=== PATIENT | female | born 1985 | race Caucasian/White ===

== ENCOUNTER 2017-04-29 18:02 | Emergency (ER) | payer OTHER ==
[2017-04-29] MEDS ORDERED: GELATIN SPONGE,ABSORB (SMALL) 1 EACH SPONGE TOPICAL STA (18:27)
[2017-04-29] MEDS ORDERED: ACETAMINOPHEN TAB 325 MG TAB PO STA (18:28)
--- NOTE | 2017-04-29 19:39 | ED ---
Wound/Laceration HPI - General Chief Complaint: Wound/Laceration Stated Complaint: L hand laceration Time Seen by Provider: 04/29/17 18:18 Source: patient Mode of arrival: ambulatory Limitations: no limitations - History of Present Illness Initial Comments: 31-year-old female patient presents to the emergency department today for evaluation of an injury to the left index finger. Patient was using an immersion excel expert when she went to clean eye with her finger and accidentally hit the button. Patient denies any difficulty with range of motion to the finger. States that she was able to get the bleeding under control. She denies any numbness or tingling to the finger. She denies any other injuries. Patient denies any headache, neck pain, back pain, chest pain, shortness of breath, dizziness, weakness, abdominal pain, nausea, vomiting, or difficulties with bowel movements or urination. She states her tetanus is up-to-date. - Related Data Home Medications Medication Instructions Recorded Confirmed 78/Iron/Folate 1/Dha 1 cap PO DAILY 04/29/17 04/29/17 [Prenate Dha Softgel] Allergies Allergy/AdvReac Type Severity Reaction Status Date / Time No Known Allergies Allergy Verified 04/29/17 18:45 Review of Systems ROS Statement: Those systems with pertinent positive or pertinent negative responses have been documented in the HPI. ROS Other: All systems not noted in ROS Statement are negative. Past Medical History Past Medical History: No Reported History History of Any Multi-Drug Resistant Organisms: None Reported Past Surgical History: No Surgical Hx Reported Past Psychological History: No Psychological Hx Reported Smoking Status: Never smoker Past Alcohol Use History: None Reported Past Drug Use History: None Reported General Exam Limitations: no limitations General appearance: alert, in no apparent distress, other (This is a well- developed, well-nourished adult female patient in no acute distress. Vital signs upon presentation her temperature 98.1F, pulse 102, respirations 20, blood pressure 130/86, pulse ox is 97% on room air.) Respiratory exam: Present: normal lung sounds bilaterally. Absent: respiratory distress, wheezes, rales, rhonchi, stridor Cardiovascular Exam: Present: regular rate, normal rhythm, normal heart sounds. Absent: systolic murmur, diastolic murmur, rubs, gallop, clicks Extremities exam: Present: full ROM, normal capillary refill, other (Patient has lacerations to the palmar aspects of the distal index finger on the left hand. There is flap like laceration to the tip of the right index finger. His skin is otherwise pink, warm, and dry. Cap refill is less than 3 seconds. Radial pulses 2+ and equal bilaterally.). Absent: tenderness, pedal edema, joint swelling, calf tenderness Neurological exam: Present: alert, oriented X3, CN II-XII intact Psychiatric exam: Present: normal affect, normal mood Skin exam: Present: warm, dry, intact, normal color. Absent: rash Course Vital Signs 04/29/17 04/29/17 18:03 20:00 Temperature 98.1 F 98.2 F Pulse Rate 102 H 85 Respiratory 20 18 Rate Blood Pressure 130/86 130/65 O2 Sat by Pulse 97 99 Oximetry Procedures - Laceration Laceration #1 Consent Obtained: verbal consent Time Out Performed: Yes Indication: laceration Site: hand (Left Index Finger) Size (cm): 2 Description: irregular Depth: simple, single layer Anesthetic Used: lidocaine 1% Anesthesia Technique: local infiltration Amount (mls): 4 Pre-repair: irrigated extensively Type of Sutures: nylon Size of Sutures: 5-0 Number of Sutures: 4 Technique: simple, interrupted Patient Tolerated Procedure: well, no complications Medical Decision Making - Medical Decision Making 31-year-old female patient presented to the emergency department today for evaluation of laceration to the palmar aspect of the distal left index finger. Physical examination reveals a 2.5 cm laceration with multiple skin flaps and irregularities. Skin appears to be shredded. I was able to repair the medial aspect of the laceration with 4 sutures. Dressing was applied. Patient was educated regarding signs or symptoms of infection. She was instructed to wash the wounds twice daily with warm soap and water. She is instructed to return here in 7 days for suture removal. She is instructed to have her physician recheck the wound in one or 2 days. She is instructed to return here immediately for any new, worsening, or concerning symptoms. She verbalizes understanding and agrees this plan. Disposition Clinical Impression: Finger laceration, Skin avulsion Disposition: HOME SELF-CARE Condition: Good Instructions: Care For Your Stitches (ED), Laceration (ED) Additional Instructions: Monitor for signs or symptoms of infection including but not limited to redness , swelling, drainage of pus, fever, or chills. Continue taking Tylenol for pain control. Keep finger elevated. Return here for removal of stitches in 7 days. Do not immerse in water, like dishwater, pools, hot tubs, lakes, or ponds. Return here immediately for any new, worsening, or concerning symptoms. Referrals: Abhijeet Leavitt DO [Primary Care Provider] - 1-2 days Time of Disposition: 19:39
[2017-04-29 20:01] VITALS: BP 130/65; PULSE 85; RESP 18; TEMP 98.2
== END 2017-04-29 20:01 | disposition home or self-care (01) ==
LOC: EC 18:02
DX: O9A.213 Injury, poisoning and certain other consequences of external causes complicating pregnancy, third trimester (principal); S61.211A Laceration without foreign body of left index finger without damage to nail, initial encounter; Z3A.33 33 weeks gestation of pregnancy; Z79.899 Other long term (current) drug therapy; W22.8XXA Striking against or struck by other objects, initial encounter; Y93.89 Activity, other specified
CPT/HCPCS: 12001; 99282

== ENCOUNTER 2019-09-19 06:30 | Inpatient (IN) | payer OTHER ==
[2019-09-19] MEDS ORDERED: CARBOPROST TROMETHAMINE 250 MCG/ML 1 ML AMP IM PRN (07:21)
[2019-09-19] MEDS ORDERED: METHYLERGONOVINE 0.2 MG/ML 1 ML AMP IM PRN (07:21)
[2019-09-19] MEDS ORDERED: MISOPROSTOL 200 MCG TAB PO STA (07:25)
[2019-09-19] MEDS ORDERED: BUTORPHANOL 1 MG/ML 1 ML VIAL IV PRN (07:27)
[2019-09-19] MEDS ORDERED: ONDANSETRON 4 MG/2 ML VIAL IVP PRN (07:28)
[2019-09-19] MEDS: LACTATED RINGERS 1,000 ML IV SCH ×3 (07:28→15:45)
[2019-09-19 07:40] LABS: Basophils % (A) 0 %; Eosinophils # (A) 0.2 k/uL (0-0.7); Eosinophils % (A) 3 %; HCT 40.9 % (34.0-46.0); HGB 13.8 gm/dL (11.4-16.0); Lymphocytes # (A) 1.3 k/uL (1.0-4.8); Lymphocytes % (A) 17 %; MCH 31.9 pg (25.0-35.0); MCHC 33.7 g/dL (31.0-37.0); MCV 94.7 fL (80.0-100.0); Mean Platelet Volume 7.2; Monocytes # (A) 0.3 k/uL (0-1.0); Monocytes % (A) 4 %; Neutrophils # (A) 5.7 k/uL (1.3-7.7); Neutrophils % (A) 75 %; Platelet Count 327 k/uL (150-450); RBC 4.32 m/uL (3.80-5.40); WBC 7.7 k/uL (3.8-10.6)
--- NOTE | 2019-09-19 08:12 | P.HPOB ---
History of Present Illness H&P Date: 09/19/19 Chief Complaint: Interuterine demise at 24 and 5/sevenths weeks. This is a 33-year-old 2 para 1001 at 24-5/7 weeks with known low-lying placenta that presented to the office on 09/17 for follow-up ultrasound. Patient stated a few days prior she had bleeding in the morning only with wiping. She denied any bright red bleeding. Ultrasound was performed in the office revealing interuterine demise with best estimated date . Femur length of 19 weeks and 5/7 days. No heart tones were appreciated. During this patient had been receiving routine care since the first trimester. Patient underwent 20 week ultrasound was noted have a low- lying placenta, 0.5 cm from the cervical os. Patient had this with her last in addition. Her last was uncomplicated, normal spontaneous vaginal delivery of a viable female at 38 weeks. On bloodwork she was noted have a blood type of A+, rubella status immune, RPR nonreactive, hepatitis B surface antigen negative, HIV negative. Review of Systems Constitutional: Denies chills, Denies fatigue, Denies fever Ears, nose, mouth and throat: Denies headache Cardiovascular: Denies edema Gastrointestinal: Denies nausea, Denies vomiting Genitourinary: Reports Past Medical History Past Medical History: No Reported History History of Any Multi-Drug Resistant Organisms: None Reported Past Surgical History: No Surgical Hx Reported Past Anesthesia/Blood Transfusion Reactions: No Reported Reaction Past Psychological History: No Psychological Hx Reported Smoking Status: Never smoker Past Alcohol Use History: None Reported Past Drug Use History: None Reported - Past Family History Father Family Medical History: Hypertension Mother Family Medical History: Diabetes Mellitus Medications and Allergies Home Medications Medication Instructions Recorded Confirmed Type 78/Iron/Folate 1/Dha 1 cap PO DAILY 04/29/17 09/19/19 History [Prenate Dha Softgel] Allergies Allergy/AdvReac Type Severity Reaction Status Date / Time No Known Allergies Allergy Verified 09/19/19 06:40 Exam Osteopathic Statement: *. No significant issues noted on an osteopathic structural exam other than those noted in the History and Physical/Consult. Vital Signs Temp Pulse Resp BP 09/19/19 06:39 97.7 F 79 16 113/76 Intake and Output 09/18/19 09/19/19 09/19/19 22:59 06:59 14:59 Other: Weight 60.781 kg Targeted physical exam is performed in this date and acquisition editor a well-nourished well-developed female in no acute distress, breathing is noted to be nonlabored, heart has a regular rate and rhythm. Abdomen is gravid and appropriate for gestational age. Cervical exam is deferred, as it was performed in the office yesterday. It was noted to be closed/firm/high presentation of the fetus in the posterior lower uterine segment. Results Result Diagrams: 09/19/19 07:10 Assessment and Plan (1) IUFD (intrauterine ) Current Visit: Yes Status: Acute Code(s): HDB5372 - SNOMED Code(s): 939141433 (2) AMA (advanced maternal age) multigravida 35+ Current Visit: Yes Status: Acute Code(s): O09.529 - SUPERVISION OF ELDERLY MULTIGRAVIDA, UNSPECIFIED TRIMESTER SNOMED Code(s): 411569841 Plan: We'll plan Cytotec induction of labor, plan is discussed with the patient including options for analgesia including Stadol/CONSTRUCTION CONSULTANT or epidural should anesthesia allow. Multiple questions are answered and anticipate spontaneous vaginal delivery later today.
[2019-09-19] MEDS ORDERED: PRENATAL VIT-IRON-FOLIC ACID 1 EACH CAP PO SCH (09:00)
[2019-09-19 10:22] LABS: Partial Thromboplastin Time 24.2 sec (22.0-30.0); Prothrombin Time 10.3 sec (9.0-12.0)
[2019-09-19] MEDS ORDERED: MISOPROSTOL 200 MCG TAB VAGINAL SCH (12:00)
[2019-09-19] MEDS ORDERED: ACETAMINOPHEN IV (For NPO) 1,000 MG in EMPTY BAG 1 BAG IVPB ONE (14:00)
[2019-09-19] MEDS ORDERED: MISOPROSTOL 200 MCG TAB PO SCH (16:00)
[2019-09-19] MEDS: MISOPROSTOL 200 MCG TAB PO SCH (20:10)
[2019-09-19] MEDS ORDERED: ROPIVACAINE 100 MG, fentaNYL (PF) 200 MCG in SODIUM CHLORIDE 0.9% 76 ML EPIDURAL ONE (20:45)
[2019-09-19] MEDS ORDERED: WITCH HAZEL 1 EACH MED..PAD TOPICAL PRN (21:38)
[2019-09-19] MEDS ORDERED: HYDROcodone/APAP 5-325MG 1 EACH TAB PO PRN (21:38)
[2019-09-19] MEDS ORDERED: ACETAMINOPHEN TAB 325 MG TAB PO PRN (21:38)
[2019-09-19] MEDS ORDERED: diphenhydrAMINE 50 MG/ML 1 ML VIAL IVP PRN ×2 (21:38)
[2019-09-19] MEDS ORDERED: BENZOCAINE/MENTHOL SPRAY 1 GM/SPRAY AEROSOL TOPICAL PRN (21:38)
[2019-09-19] MEDS ORDERED: ZOLPIDEM 5 MG TAB PO PRN (21:38)
[2019-09-19] MEDS ORDERED: diphenhydrAMINE 25 MG CAP PO PRN (21:38)
[2019-09-19] MEDS ORDERED: IBUPROFEN 600 MG TAB PO PRN (21:38)
[2019-09-19] MEDS ORDERED: HYDROCORTISONE 2.5% RECTAL CREAM 30 GM TUBE RECTAL PRN (21:38)
[2019-09-19] MEDS ORDERED: diphenhydrAMINE 50 MG CAP PO PRN (21:38)
[2019-09-19] MEDS ORDERED: SIMETHICONE 80 MG CHEWABLE PO PRN (21:38)
[2019-09-19] MEDS ORDERED: LANOLIN CREAM 5 GM TUBE TOPICAL PRN (21:38)
--- NOTE | 2019-09-19 21:38 | P.PROBDLV ---
Vaginal Delivery Note - . Vaginal Delivery Note: This 33-year-old 2 para 1001 at 24 weeks presented to the office yesterday for follow-up on low-lying placenta. No heart tones were noted and fetus was noted to be measuring 19 weeks and 5 days based on femur length. Patient was admitted this morning for Cytotec induction of labor given interuterine demise. Patient progressed through the day eventually becoming uncomfortable no relief from Stadol therefore epidural was administered by the anesthesia department. Patient underwent amniotomy and dark bloody fluid was noted. Patient progressed through labor eventually noting an increase in pelvic pressure on exam fetus was noted to be delivered., umbilical cord was doubly clamped and fetus was handed off to mom. Placenta remained intact bleeding was minimal at this time. No vaginal lacerations were noted.
[2019-09-19 23:44] VITALS: TEMP 98.2
[2019-09-20 00:11] VITALS: BP 123/58; PULSE 66; RESP 16
[2019-09-20] MEDS: MISOPROSTOL 200 MCG TAB PO SCH (01:49)
[2019-09-20] MEDS ORDERED: OXYTOCIN 20 UNITS/1000 ML NS 1,000 ML IV SCH (02:00)
[2019-09-20] MEDS ORDERED: SENNOSIDES-DOCUSATE SODIUM 1 EACH TAB PO SCH (08:00)
--- NOTE | 2019-09-23 14:07 | P.DS ---
Providers Date of admission: 09/19/19 06:31 Expected date of discharge: 09/23/19 Attending physician: Radha Castellanos Primary care physician: Stated None - Discharge Diagnosis(es) (1) IUFD (intrauterine ) Status: Acute (2) AMA (advanced maternal age) multigravida 35+ Status: Acute Hospital Course: This pleasant 33-year-old 2 para 1001 was seen in the office at 24-5/7 weeks for routine placenta check. On patient's 20 week ultrasound patient was noted have a low-lying placenta 0.5 cm from the os. Patient was noted on this visit to have no heart tones. Infant was noted to measure 19 weeks. Patient was counseled on delivery options in the office. Patient was admitted to the hospital and Cytotec induction of labor was begun. Patient made slow progress through labor eventually becoming uncomfortable and requesting epidural placement. Patient did undergo amniotomy and dark bloody fluid was noted. Patient then complained of pelvic pressure and was noted to be in the vaginal vault. With 1 small maternal effort the was delivered the umbilical cord was doubly clamped and cut. No bleeding was noted. The infant was wrapped and handed off to mom. The placenta was delivered soon afterwards uterus is noted to be firm and below the umbilicus minimal bleeding was noted. No vaginal lacerations were noted. Epidural was discontinued. Subsequently patient was feeling well bleeding was stable and patient wishes discharge home. Therefore around 2:30 AM patient was discharged home without difficulty. Patient was counseled on depression, risks of infection. Patient stated understanding and wished to be discharged home. Patient Condition at Discharge: Good Plan - Discharge Summary Discharge Rx Participant: No New Discharge Prescriptions: No Action 78/Iron/Folate 1/Dha [Prenate Dha Softgel] 1 cap PO DAILY Discharge Medication List 78/Iron/Folate 1/Dha [Prenate Dha Softgel] 1 cap PO DAILY 04/29/17 [History] Follow up Appointment(s)/Referral(s): Radha Castellanos DO [Doctor of Osteopathic Medicine] - 2 Weeks Patient Instructions/Handouts: Stillbirth (DC), Stillbirth (GEN) Discharge Disposition: HOME SELF-CARE
== END 2019-09-20 02:20 | disposition home or self-care (01) | DRG 806 ==
LOC: 4FBP 06:31
PROVIDERS: ADMIT Obstetrics & Gynecology Obstetrics; ATTEND Obstetrics & Gynecology Obstetrics
DX: O36.4XX0 Maternal care for intrauterine death, not applicable or unspecified (principal); O44.43 Low lying placenta NOS or without hemorrhage, third trimester; Z37.1 Single stillbirth; Z3A.24 24 weeks gestation of pregnancy; Z79.899 Other long term (current) drug therapy; Z82.49 Family history of ischemic heart disease and other diseases of the circulatory system; Z83.3 Family history of diabetes mellitus
CPT/HCPCS: 85025; 85610; 85730; 86850; 86900; 86901; 88305

== ENCOUNTER → 2020-03-12 | Outpatient (CLI) | payer OTHER ==
--- NOTE | 2020-03-12 10:54 | US ---
EXAMINATION TYPE: Transabdominal DATE OF EXAM: 03/12/2020 10:32 AM COMPARISON: NONE CLINICAL HISTORY: O46.91 Antepartum hemorrhage, unspecified. Pt states light vaginal bleeding x 2 day s EXAM PERFORMED: Transvaginal (TV) and Transabdominal (TA) EXAM MEASUREMENTS: GESTATIONAL AGE / DATING Physician Established: Not yet established Dates by LMP: (10 weeks/5 days) EDC: 10/03/2020 Dates by First Scan: No prior Dates by Current Scan for: (8 weeks/0 days) Demise MATERNAL ANATOMY Uterus: 8.9 x 5.2 x 6.9 cm Right Ovary: 3.3 x 2.3 x 2.7 cm Left Ovary: 2.6 x 1.4 x 2.8 cm Post CDS / Adnexa: wnl Presence of free fluid: No Presence of corpus luteal cyst: Right Ovary= 1.8 x 1.5 x 1.5 cm GESTATION / SURVEY CRL: 1.5 cm (8 weeks/0 days) Yolk Sac (normal less than 6mm): Not visualized Heart Rate: Not detected IUP: Demise Date of LMP: 12/28/2019 8 week demise Results called to Dr. Castellanos at time of exam IMPRESSION: demise as noted above.
== END | disposition home or self-care (01) ==
LOC: RADUSWWP 10:10
PROVIDERS: ATTEND Obstetrics & Gynecology Obstetrics
DX: O36.4XX0 Maternal care for intrauterine death, not applicable or unspecified (principal); Z3A.08 8 weeks gestation of pregnancy
CPT/HCPCS: 76801; 76817

== ENCOUNTER → 2020-03-12 | Outpatient (CLI) | payer OTHER ==
[2020-03-12 12:12] LABS: Basophils % (A) 1 %; Eosinophils # (A) 0.1 k/uL (0-0.7); Eosinophils % (A) 1 %; HCT 41.4 % (34.0-46.0); HGB 13.5 gm/dL (11.4-16.0); Lymphocytes # (A) 1.2 k/uL (1.0-4.8); Lymphocytes % (A) 17 %; MCH 30.1 pg (25.0-35.0); MCHC 32.6 g/dL (31.0-37.0); MCV 92.3 fL (80.0-100.0); Mean Platelet Volume 6.6; Monocytes # (A) 0.3 k/uL (0-1.0); Monocytes % (A) 4 %; Neutrophils # (A) 5.7 k/uL (1.3-7.7); Neutrophils % (A) 76 %; Platelet Count 309 k/uL (150-450); RBC 4.49 m/uL (3.80-5.40); RDW 12.7 % (11.5-15.5); WBC 7.5 k/uL (3.8-10.6)
== END | disposition home or self-care (01) ==
LOC: LABPAT 11:21
PROVIDERS: ATTEND Obstetrics & Gynecology Obstetrics
DX: Z01.818 Encounter for other preprocedural examination (principal); O02.1 Missed abortion
CPT/HCPCS: 36415; 85025; 86850; 86900; 86901

== ENCOUNTER 2020-03-13 09:27 | Day surgery (SDC) | payer OTHER ==
[2020-03-12 13:11] VITALS: BMI 20.3
[~2020-03-13 09:27] MED LIST: DEXAMETHASONE SOD PHOSPHATE 10 MG/ML 1 ML VIAL IV ONE; HYDROmorphone 0.5 MG/0.5 ML SYRINGE IVP PRN; KETOROLAC 15 MG/ML 1 ML VIAL IVP SCH; LIDOCAINE 1% (10MG/ML) FOR IV START INTRADERMA PRN; METOCLOPRAMIDE 5 MG/ML 2 ML VIAL IVP PRN; ONDANSETRON 4 MG/2 ML VIAL IVP ONE; Pre Op ABX Message 1 EACH MISC MISCELLANE ONE; SCOPOLAMINE 1.5MG/72HR PATCH TRANSDERM ONE
[2020-03-13 09:47] VITALS: TEMP 98.5
[2020-03-13] MEDS: LACTATED RINGERS 1,000 ML IV SCH ×2 (10:06→11:17)
[2020-03-13] MEDS ORDERED: fentaNYL (PF) 50 MCG/ML 2 ML AMP ONE (11:14)
[2020-03-13] MEDS ORDERED: MIDAZOLAM 2 MG/2 ML VIAL ONE (11:14)
[2020-03-13] MEDS ORDERED: PROPOFOL 10 MG/ML 20 ML VIAL IV ONE (11:14)
[2020-03-13] MEDS ORDERED: LIDOCAINE 1% INJ 10MG/ML (20 ML MDV) ONE (11:14)
--- NOTE | 2020-03-13 12:03 | P.OP ---
Date of Procedure: 03/13/20 Preoperative Diagnosis: Missed AB Postoperative Diagnosis: Same Procedure(s) Performed: Suction dilation and curettage Anesthesia: MAC Surgeon: Radha Castellanos Estimated Blood Loss (ml): 5 IV fluids (ml): 400 Urine output (ml): 100 Pathology: other (Uterine contents) Condition: stable Disposition: PACU Indications for Procedure: Missed AB at 8 weeks Operative Findings: Moderate amount of products of conception Description of Procedure: Patient was taken back to the operating suite where general anesthesia was obtained without difficulty by the anesthesia department. She was prepped and draped in the normal sterile fashion in the dorsal lithotomy position. A red rubber catheter was used to drain the bladder clear yellow urine. A weighted speculum was placed in the posterior vaginal vault. The anterior lip of the cervix is visualized and grasped with a single-tooth tenaculum. The endocervical canal was then dilated to 18-[place]. An 8 curved suction curette was then placed through the cervix and toward the endometrial cavity suction was then activated and the uterus was cleared of a moderate amount of products of conception with 2 passes. A gentle sharp curettage was performed and the uterus is noted to be empty. An additional pass with the suction curet was used to ensure no further tissue remained. The single-tooth tenaculum was taken off of the anterior lip of the cervix. Hemostasis was appreciated on the tenaculum site. All instrument removed from the patient's vaginal vault. All counts were noted to be correct 2 at the end the procedure. Patient was taken to the recovery room awake in stable condition.
[2020-03-13 12:27] VITALS: RESP 16
[2020-03-13 12:48] VITALS: BP 117/60; PULSE 50
== END 2020-03-13 13:10 | disposition home or self-care (01) ==
LOC: OR 09:27
PROVIDERS: ATTEND Obstetrics & Gynecology Obstetrics
DX: O02.1 Missed abortion (principal); Z79.82 Long term (current) use of aspirin; Z83.49 Family history of other endocrine, nutritional and metabolic diseases; Z82.49 Family history of ischemic heart disease and other diseases of the circulatory system; Z83.3 Family history of diabetes mellitus
CPT/HCPCS: 88305; 59820; J2250; J1100; J2405; J2001; J3010; J2704

== ENCOUNTER 2020-12-15 12:40 | Outpatient (CLI) | payer OTHER ==
[2020-12-15] MEDS ORDERED: BETAMET ACET-BETAMETH SOD PHOS 6 MG/ML MDV IM SCH (12:45)
--- NOTE | 2020-12-21 08:27 | P.MSEPDOC ---
Presenting Problems - Arrival Data Date of Arrival on Unit: 12/15/20 Time of Arrival on Unit: 12:58 Mode of Transport: Ambulatory - Complaint OB-Reason for Admission/Chief Complaint: Other Comment: written order for celestone injection. Medical History - Information : 4 Para: 1 Term: 1 : 0 Abortions: Spontaneous or Elective: 2 Number of Living Children: 1 - Gestational Age Gestational Age by TAM (wks/days): 30 Weeks and 5 Days Review of Systems - Review of Systems Constitutional: No problems Breast: No problems ENT: No problems Cardiovascular: No problems Respiratory: No problems Gastrointestinal: No problems Genitourinary: No problems Musculoskeletal: No problems Neurological: No problems Skin: No problems Maternal Triage Index - Maternal Triage Index Presenting for scheduled procedure w/no complaint: Yes - Scheduled/Requesting Priority 5 Scheduled/Requesting Priority 5: No Disposition - Disposition OB Disposition: Discharge to home Discharge Date: 12/15/20 Discharge Time: 12:58 I agree with the RN Medical Screening Exam: Yes Case reviewed; plan agreed upon as documented in EMR&OBIX.: Yes Comments: Patient was neither seen nor examined by me. Diagnosis: RELATED CONDITIONS, UNSPECIFIED, THIRD TRIMESTER
== END 2020-12-15 12:58 | disposition home or self-care (01) ==
LOC: FBPOP 12:40
PROVIDERS: ATTEND Obstetrics & Gynecology
DX: O26.93 Pregnancy related conditions, unspecified, third trimester (principal); Z3A.30 30 weeks gestation of pregnancy
CPT/HCPCS: 99214; 96372; J0702

== ENCOUNTER 2020-12-16 12:30 | Outpatient (CLI) | payer OTHER ==
[2020-12-16] MEDS ORDERED: BETAMET ACET-BETAMETH SOD PHOS 6 MG/ML MDV IM SCH (12:45)
[2020-12-16 13:29] VITALS: BP 120/65; PULSE 79; RESP 16; TEMP 98
== END 2020-12-16 12:50 | disposition home or self-care (01) ==
LOC: FBPOP 12:30
PROVIDERS: ATTEND Obstetrics & Gynecology Obstetrics
DX: O36.5930 Maternal care for other known or suspected poor fetal growth, third trimester, not applicable or unspecified (principal); Z3A.30 30 weeks gestation of pregnancy
CPT/HCPCS: 96372; J0702; 99213

== ENCOUNTER 2021-01-28 03:15 | Inpatient (IN) | payer OTHER ==
[2021-01-28] MEDS ORDERED: LIDOCAINE 0.5% (PF) 5 MG/ML (50 ML SDV) SQ PRN (03:32)
[2021-01-28] MEDS ORDERED: TERBUTALINE 1 MG/ML VIAL SQ PRN (03:32)
[2021-01-28] MEDS ORDERED: OXYTOCIN 10 UNIT/ML 1 ML VIAL IM PRN (03:32)
[2021-01-28] MEDS ORDERED: CARBOPROST TROMETHAMINE 250 MCG/ML 1 ML AMP IM PRN (03:32)
[2021-01-28] MEDS ORDERED: METHYLERGONOVINE 0.2 MG/ML 1 ML AMP IM PRN (03:32)
[2021-01-28] MEDS ORDERED: BUTORPHANOL 1 MG/ML 1 ML VIAL IV PRN (03:39)
[2021-01-28] MEDS: LACTATED RINGERS 1,000 ML IV SCH ×3 (04:14→20:50)
[2021-01-28 04:32] LABS: Basophils % (A) 0 %; Eosinophils # (A) 0.2 k/uL (0-0.7); Eosinophils % (A) 2 %; HCT 36.4 % (34.0-46.0); HGB 12.8 gm/dL (11.4-16.0); Lymphocytes # (A) 1.7 k/uL (1.0-4.8); Lymphocytes % (A) 19 %; MCHC 35.1 g/dL (31.0-37.0); MCV 96.9 fL (80.0-100.0); Mean Platelet Volume 8.4; Monocytes # (A) 0.4 k/uL (0-1.0); Monocytes % (A) 5 %; Neutrophils # (A) 6.4 k/uL (1.3-7.7); Neutrophils % (A) 72 %; Platelet Count 248 k/uL (150-450); RBC 3.76 m/uL (3.80-5.40); RDW 14.1 % (11.5-15.5)
[2021-01-28] MEDS ORDERED: OXYTOCIN 30 UNITS/500 ML NS 30 UNIT in SALINE 1 500ML.BAG IV SCH ×2 (05:00→17:00)
--- NOTE | 2021-01-28 08:47 | P.HPOB ---
History of Present Illness H&P Date: 01/28/21 Chief Complaint: IUP at 37-0/7 weeks, premature rupture of membranes This is a 35-year-old G for P1111 at 37-0/7 weeks that presents to labor and delivery with complaints of rupture of membranes around 2 AM. Patient states the fluid was noted be clear in nature. Patient has been receiving routine care which has been complicated by growth resection. Patient had an ultrasound done to stay at this week with an estimated weight of 5 lbs. 1 oz., 4th percentile, amniotic fluid index was 10, biophysical profile noted to be 8 out of 8. Patient has a history of recurrent loss, demise at 22 weeks, spontaneous AB first trimester. Patient notes good movement. On bloodwork this patient has a blood type of A+, rubella status is immune, RPR is nonreactive, B surface antigen is negative, HIV is negative she did pass her 1 hour gestational diabetes screen. Group B beta strep culture was negative on 01/19. Review of Systems Constitutional: Denies chills, Denies fatigue, Denies fever Ears, nose, mouth and throat: Denies headache Cardiovascular: Reports leg edema Respiratory: Denies dyspnea Gastrointestinal: Denies constipation, Denies diarrhea, Denies nausea, Denies vomiting Genitourinary: Reports Past Medical History Past Medical History: No Reported History History of Any Multi-Drug Resistant Organisms: None Reported Past Surgical History: No Surgical Hx Reported Additional Past Surgical History / Comment(s): [place] tooth extraction, and D&C Past Anesthesia/Blood Transfusion Reactions: No Reported Reaction Additional Past Anesthesia/Blood Transfusion Reaction / Comment(s): no hx general anesthesia, had epidurals in past before.,no hx blood transfusions Past Psychological History: No Psychological Hx Reported Smoking Status: Never smoker Past Alcohol Use History: None Reported Past Drug Use History: None Reported - Past Family History Father Family Medical History: Hypertension Additional Family Medical History / Comment(s): Aortic Aneurysm Repair Mother Family Medical History: Diabetes Mellitus Medications and Allergies Home Medications Medication Instructions Recorded Confirmed Type 78/Iron/Folate 1/Dha 1 cap PO DAILY 04/29/17 01/28/21 History [Prenate Dha Softgel] Aspirin 81 mg PO DAILY 03/12/20 01/28/21 History Allergies Allergy/AdvReac Type Severity Reaction Status Date / Time No Known Allergies Allergy Verified 01/28/21 03:26 Exam Osteopathic Statement: *. No significant issues noted on an osteopathic structural exam other than those noted in the History and Physical/Consult. Vital Signs Temp Pulse Resp BP Pulse Ox 01/28/21 03:59 96.9 F L 72 16 150/90 01/28/21 03:25 97.3 F L 77 16 129/82 99 Intake and Output 01/27/21 01/28/21 01/28/21 22:59 06:59 14:59 Other: Weight 68.492 kg Targeted physical exam was done on this date, this is a pleasant well-nourished well-developed female in no acute distress, breathing is noted to be nonlabored, heart has a regular rate and rhythm, abdomen is noted to be gravid. heart tones are noted to be category 1 and she is fang irregularly. On cervical exam she is 1/70/-2 station. Results Result Diagrams: 01/28/21 04:15 Abnormal Lab Results - Last 24 Hours (Table) 01/28/21 Range/Units 04:15 RBC 3.76 L (3.80-5.40) m/uL Assessment and Plan (1) 37 weeks gestation of Current Visit: Yes Status: Acute Code(s): Z3A.37 - 37 WEEKS GESTATION OF SNOMED Code(s): 52804115 (2) PROM (premature rupture of membranes) Current Visit: Yes Status: Acute Code(s): O42.90 - DEBI ROM, 7TH0 BETW RUPT & ONST LABR, UNSP WEEKS OF GEST SNOMED Code(s): 10423363 (3) AMA (advanced maternal age) multigravida 35+ Current Visit: No Status: Acute Code(s): O09.529 - SUPERVISION OF ELDERLY MULTIGRAVIDA, UNSPECIFIED TRIMESTER SNOMED Code(s): 200888891 Plan: 35-year-old at 37-0/7 weeks that presented to labor and delivery with complaints of premature rupture of membranes. Patient has known growth restriction with an estimated weight of 5 lbs. 1 oz., 4th percentile. Pitocin augmentation of labor was begun per hospital protocol. Options for analgesia during labor discussed putting epidural and Stadol. Patient will consider. Anticipate spontaneous vaginal delivery later stay.
[2021-01-28] MEDS ORDERED: fentaNYL (PF) 50 MCG/ML 5 ML AMP ONE (12:00)
[2021-01-28] MEDS ORDERED: ROPIVACAINE 5MG/ML 20ML VIAL ONE (12:00)
[2021-01-28] MEDS ORDERED: SODIUM CHLORIDE 0.9% 100 ML BAG ONE (12:00)
[2021-01-28] MEDS ORDERED: PENICILLIN G POTASSIUM 5,000,000 UNIT in DEXTROSE 5% IN WATER 100 ML IVPB STA ×2 (15:15)
[2021-01-28] MEDS ORDERED: diphenhydrAMINE 25 MG CAP PO PRN (16:57)
[2021-01-28] MEDS ORDERED: BENZOCAINE/MENTHOL SPRAY 1 GM/SPRAY AEROSOL TOPICAL PRN (16:57)
[2021-01-28] MEDS ORDERED: ACETAMINOPHEN TAB 325 MG TAB PO PRN (16:57)
[2021-01-28] MEDS ORDERED: HYDROCORTISONE 2.5% RECTAL CREAM 30 GM TUBE RECTAL PRN (16:57)
[2021-01-28] MEDS ORDERED: ZOLPIDEM 5 MG TAB PO PRN (16:57)
[2021-01-28] MEDS ORDERED: diphenhydrAMINE 50 MG CAP PO PRN (16:57)
[2021-01-28] MEDS ORDERED: SIMETHICONE 80 MG CHEWABLE PO PRN (16:57)
[2021-01-28] MEDS ORDERED: HYDROcodone/APAP 5-325MG 1 EACH TAB PO PRN (16:57)
[2021-01-28] MEDS ORDERED: LANOLIN CREAM 5 GM TUBE TOPICAL PRN (16:57)
[2021-01-28] MEDS ORDERED: HYDROcodone/APAP 7.5-325MG 1 EACH TAB PO PRN (16:57)
[2021-01-28] MEDS ORDERED: diphenhydrAMINE 50 MG/ML 1 ML VIAL IVP PRN ×2 (16:57)
--- NOTE | 2021-01-28 17:02 | P.PROBDLV ---
Vaginal Delivery Note - . Vaginal Delivery Note: The patient is a 35-year-old 4 para 1111 presents to labor and delivery at 37-0/7 weeks with documented spontaneous rupture of membranes for clear fluid. She had been scheduled for induction in the next several days secondary to the diagnosis of intrauterine growth restriction. She has had reassuring testing throughout but growth has been at the 4th percentile most recently. On labor and delivery, all signs reassuring. She had Pitocin augmentation started and ultimately had an epidural catheter placed for analgesia. She made very slow progress through the latent phase of labor and then began to make more rapid progress in the active phase. She did have antibody prophylaxis started at approximately 14 hours post rupture she remained approximately 3 cm of dilation. After this, she progressed fairly quickly to complete and the head descended to on the perineum. She pushed once to a normal spontaneous vaginal delivery of a viable 5 lbs. 0 oz. baby boy with Apgars of 9 at 1 minute and 9 at 5 minutes delivered in the left occiput anterior position. The placenta was delivered spontaneously, intact, and grossly normal with a grossly normal, centrally inserted three-vessel cord. There was a small second-degree midline laceration which appeared to be over the site of a previous laceration which was repaired in standard fashion using 3-0 Vicryl. Estimated blood loss for the case is approximately 150 mL. There are no complications. All sponge, instrument, and needle counts were correct. Both mother and are resting comfortably in recovery.
[2021-01-28] MEDS: IBUPROFEN 600 MG TAB PO PRN (17:48)
[2021-01-28] MEDS ORDERED: PENICILLIN G POTASSIUM 2,500,000 UNIT in DEXTROSE 5% IN WATER 100 ML IVPB SCH ×2 (20:00)
[2021-01-28] MEDS: SENNOSIDES-DOCUSATE SODIUM 1 EACH TAB PO SCH (20:32)
[2021-01-29] MEDS: IBUPROFEN 600 MG TAB PO PRN ×2 (04:27→10:57)
[2021-01-29 06:59] LABS: Basophils % (A) 0 %; Eosinophils # (A) 0.1 k/uL (0-0.7); Eosinophils % (A) 1 %; HCT 32.6 % (34.0-46.0); HGB 11.3 gm/dL (11.4-16.0); Lymphocytes # (A) 1.5 k/uL (1.0-4.8); Lymphocytes % (A) 13 %; MCH 33.4 pg (25.0-35.0); MCHC 34.7 g/dL (31.0-37.0); MCV 96.4 fL (80.0-100.0); Monocytes # (A) 0.6 k/uL (0-1.0); Monocytes % (A) 5 %; Neutrophils # (A) 9.4 k/uL (1.3-7.7); Neutrophils % (A) 80 %; Platelet Count 222 k/uL (150-450); RBC 3.38 m/uL (3.80-5.40); RDW 13.8 % (11.5-15.5); WBC 11.8 k/uL (3.8-10.6)
[2021-01-29] MEDS: SENNOSIDES-DOCUSATE SODIUM 1 EACH TAB PO SCH ×2 (07:51→19:35)
--- NOTE | 2021-01-29 10:54 | P.PNOBGVD ---
Subjective - Subjective Principal diagnosis: day #1 status post spontaneous vaginal delivery Interval history: Patient is doing well . She is ambulating and voiding without difficulty. Her lochia is moderate. She is breast feeding without difficulty. She denies pain. Patient reports: Reports appetite normal, Reports voiding normally, Reports pain well controlled, Reports ambulating normally [place]: doing well Objective - Latest Vital Signs Latest vital signs: Vital Signs Temp Pulse Resp BP 01/29/21 07:48 98.1 F 70 16 117/72 01/29/21 04:00 98.5 F 60 16 125/88 01/29/21 00:00 98.5 F 65 16 135/69 01/28/21 20:00 98.0 F 80 16 129/69 01/28/21 18:45 97.4 F L 83 18 132/73 01/28/21 18:15 96.9 F L 80 18 135/62 01/28/21 17:45 97.1 F L 77 18 127/81 01/28/21 17:30 96.9 F L 77 18 142/65 01/28/21 17:00 96.6 F L 81 18 136/81 01/28/21 16:45 96.8 F L 77 18 125/72 Intake and Output 01/28/21 01/29/21 01/29/21 22:59 06:59 14:59 Intake Total 372.967 Output Total 400 Balance -27.033 Intake: Intake, IV Titration 372.967 Amount Oxytocin 30 Units/500 ml 372.967 Ns 30 unit In Saline 1 500ml.bag @ Per Protocol IV .Q0M [facility] Rx#:[id number] Output: Emesis 200 Estimated Blood Loss 200 Other: # Voids 1 1 - Exam Extremities: Present: normal. Absent: edema Abdomen: Present: normal appearance, soft Uterus: Present: normal, firm - Labs Labs: Abnormal Lab Results - Last 24 Hours (Table) 01/29/21 Range/Units 06:45 WBC 11.8 H (3.8-10.6) k/uL RBC 3.38 L (3.80-5.40) m/uL Hgb 11.3 L (11.4-16.0) gm/dL Hct 32.6 L (34.0-46.0) % Neutrophils # 9.4 H (1.3-7.7) k/uL Assessment and Plan (1) 37 weeks gestation of Current Visit: Yes Status: Acute Code(s): Z3A.37 - 37 WEEKS GESTATION OF SNOMED Code(s): 57152654 (2) PROM (premature rupture of membranes) Current Visit: Yes Status: Acute Code(s): O42.90 - DEBI ROM, 7TH0 BETW RUPT & ONST LABR, UNSP WEEKS OF GEST SNOMED Code(s): 30109996 (3) AMA (advanced maternal age) multigravida 35+ Current Visit: No Status: Acute Code(s): O09.529 - SUPERVISION OF ELDERLY MULTIGRAVIDA, UNSPECIFIED TRIMESTER SNOMED Code(s): 417687713 (4) Normal spontaneous vaginal delivery Current Visit: Yes Status: Acute Code(s): O80 - ENCOUNTER FOR FULL-TERM UNCOMPLICATED DELIVERY SNOMED Code(s): 07944668 Plan: 35-year-old 112 status post normal spontaneous vaginal delivery. Patient is doing well. is being monitored secondary to blood sugars and weight loss. We'll continue routine care and anticipate discharge home tomorrow.
[2021-01-29] MEDS ORDERED: DIPH,PERTUS(ACELL)TETVAC-LF 0.5 ML VIAL IM ONE (15:03)
[2021-01-30] MEDS: IBUPROFEN 600 MG TAB PO PRN (04:09)
[2021-01-30 08:17] VITALS: BP 126/62; PULSE 73; RESP 14; TEMP 98.3
[2021-01-30] MEDS: SENNOSIDES-DOCUSATE SODIUM 1 EACH TAB PO SCH (08:17)
--- NOTE | 2021-01-30 08:57 | P.DS ---
Providers Date of admission: 01/28/21 03:46 Expected date of discharge: 01/30/21 Attending physician: Radha Castellanos Primary care physician: Stated None Hospital Course: This is a 35-year-old female 4 para 10-1 EDC 02/28/2021 at 37 weeks gestation who presented with spontaneous amniorrhexis, clear fluid. Blood type B positive, rubella status immune, group B strep cultures negative. Please see dictated history and physical for details. Patient went on to swiftly deliver a liveborn male infant with scores of 9 and 9 at one and 5 minutes respectively. There was a small second-degree perineal laceration easily repaired. weighed 2255 g or 5 lbs. 0 oz. Please see dictated delivery note for details. This morning the patient and her are both doing well. Patient is voiding, ambulating, passing flatus without difficulty. Vital signs are stable and she is afebrile. Fundus is firm and in the midline, symmetric and 18 week size. Extremities reveal no edema. Breast-feeding is going well. [place] circumcision has been performed. Patient is judged to be in very good condition for discharge home. She will follow-up in the office in 6 weeks. I have reminded her no intercourse, tampons or douching. She will use [id number] Advil or Aleve, or Motrin as needed for pain. She will call with any fevers shakes or chills, foul smelling or copious lochia, with the passage of large blood clots, with any pain not relieved, or indeed with will follow-up with stereo equipment installer as per recommendations. Assessment: Doing well second day Plan - Discharge Summary Discharge Rx Participant: No New Discharge Prescriptions: No Action 78/Iron/Folate 1/Dha [Prenate Dha Softgel] 1 cap PO DAILY Aspirin 81 mg PO DAILY Discharge Medication List 78/Iron/Folate 1/Dha [Prenate Dha Softgel] 1 cap PO DAILY 04/29/17 [History] Aspirin 81 mg PO DAILY 03/12/20 [History] Follow up Appointment(s)/Referral(s): Radha Castellanos DO [Doctor of Osteopathic Medicine] - 6 Weeks
== END 2021-01-30 13:51 | disposition home or self-care (01) | DRG 807 ==
LOC: FBPOP 03:15 → 4FBP 03:46
PROVIDERS: ADMIT Obstetrics & Gynecology Obstetrics; ATTEND Obstetrics & Gynecology Obstetrics
PROC: 10E0XZZ Delivery of Products of Conception, External Approach (ICD-10-PCS; principal; 2021-01-28)
PROC: 0KQM0ZZ Repair Perineum Muscle, Open Approach (ICD-10-PCS; 2021-01-28)
PROC: BY4FZZZ Ultrasonography of Third Trimester, Single Fetus (ICD-10-PCS; 2021-01-28)
PROC: 3E033VJ Introduction of Other Hormone into Peripheral Vein, Percutaneous Approach (ICD-10-PCS; 2021-01-28)
DX: O42.92 Full-term premature rupture of membranes, unspecified as to length of time between rupture and onset of labor (principal); Z37.0 Single live birth; O70.1 Second degree perineal laceration during delivery; O12.04 Gestational edema, complicating childbirth; Z3A.37 37 weeks gestation of pregnancy; Z79.82 Long term (current) use of aspirin; Z87.59 Personal history of other complications of pregnancy, childbirth and the puerperium; Z87.19 Personal history of other diseases of the digestive system
CPT/HCPCS: 59025; 84112; 85025; 86850; 86900; 86901; 88307; 99213

== ENCOUNTER → 2022-08-29 | Outpatient (CLI) | payer OTHER ==
--- NOTE | 2022-08-30 08:41 | MM ---
Reason for Exam: Screening (asymptomatic). Baseline mammogram. Patient History: Menarche at age 11. First Full-Term at age 32. Late child-bearing (after 30). Patient has history of breast feeding. Last menstrual period: 08/15/2022 Risk Values: Louise 5 year model risk: 0.6%. NCI Lifetime model risk: 13.7%. Prior Study Comparison: Patient's first Mammogram. Tissue Density: The breast tissue is heterogeneously dense. This may lower the sensitivity of mammography. Findings: Analyzed By CAD. There is no suspicious group of microcalcifications or suspicious mass in either breast. No architectural distortion. Overall Assessment: Negative, BI-RAD 1 Management: Screening Mammogram of both breasts in 1 year. A clinical breast exam by your physician is recommended on an annual basis and results should be correlated with mammographic findings. Electronically signed and approved by: Jared Roldan D.O.
== END | disposition home or self-care (01) ==
LOC: RADMAMWWP 07:39
PROVIDERS: ATTEND Obstetrics & Gynecology Obstetrics
DX: Z12.31 Encounter for screening mammogram for malignant neoplasm of breast (principal)
CPT/HCPCS: 77067

== ENCOUNTER → 2023-11-09 | Outpatient (CLI) | payer OTHER ==
--- NOTE | 2023-11-09 20:20 | MM ---
Reason for Exam: Screening (asymptomatic). Last mammogram was performed 1 year(s) and 2 month(s) ago. Patient History: Menarche at age 11. First Full-Term at age 32. Late child-bearing (after 30). Patient has history of breast feeding. Last menstrual period: 10/16/2023 Risk Values: Louise 5 year model risk: 0.7%. NCI Lifetime model risk: 13.7%. Prior Study Comparison: 08/29/2022 Bilateral MG screening mammo w CAD, [facility]. Tissue Density: The breasts are heterogeneously dense, which may obscure small masses. Findings: Analyzed By CAD. No significant mass, suspicious microcalcification, or other discrete abnormality is seen. Overall Assessment: Benign, BI-RAD 2 Management: Screening Mammogram of both breasts in 1 year. . Patient should continue monthly self-breast exams. A clinical breast exam by your physician is recommended on an annual basis. This exam should not preclude additional follow-up of suspicious palpable abnormalities. Note on Louise scores and lifetime risk: 1. A Louise score greater than 3% is considered moderate risk. If this is the case, consider specialist referral to assess eligibility for a risk reducing agent. 2. If overall lifetime risk for the development of breast cancer is 20% or higher, the patient may qualify for future screening with alternating mammogram and breast MRI. Electronically signed and approved by: Vera Mccarthy M.D. Radiologist
== END | disposition home or self-care (01) ==
LOC: RADMAMWWP 08:20
PROVIDERS: ATTEND Family Medicine
DX: Z12.31 Encounter for screening mammogram for malignant neoplasm of breast (principal)
CPT/HCPCS: 77067

== ENCOUNTER → 2024-12-04 | Outpatient (CLI) | payer OTHER ==
--- NOTE | 2024-12-04 11:33 | MM ---
Reason for Exam: Screening (asymptomatic). Last mammogram was performed 1 year(s) and 1 month(s) ago. Patient History: Menarche at age 11. First Full-Term at age 32. Late child-bearing (after 30). Patient has history of breast feeding. Risk Values: Louise 5 year model risk: 0.8%. NCI Lifetime model risk: 13.6%. Prior Study Comparison: 08/29/2022 Bilateral MG screening mammo w CAD, [facility]. 11/09/2023 Bilateral MG screening mammo w CAD, [facility]. Tissue Density: The breasts are heterogeneously dense, which may obscure small masses. Findings: Analyzed By CAD. Right breast: There is no suspicious group of microcalcifications or new suspicious mass. Left breast: There is no suspicious group of microcalcifications or new suspicious mass. Overall Assessment: Negative, BI-RAD 1 Management: Screening Mammogram of both breasts in [address] [facility] will attempt to contact patient to return for supplemental views and ultrasound if indicated. Patient should continue monthly self-breast exams. A clinical breast exam by your physician is recommended on an annual basis. This exam should not preclude additional follow-up of suspicious palpable abnormalities. Note on Louise scores and lifetime risk: 1. A Louise score greater than 3% is considered moderate risk. If this is the case, consider specialist referral to assess eligibility for a risk reducing agent. 2. If overall lifetime risk for the development of breast cancer is 20% or higher, the patient may qualify for future screening with alternating mammogram and breast MRI. [facility], , 12/04/2024 10:30 AM. Electronically signed and approved by: Marcial Riley DO
== END | disposition home or self-care (01) ==
LOC: RADMAMWWP 09:17
PROVIDERS: ATTEND Family Medicine
DX: Z12.31 Encounter for screening mammogram for malignant neoplasm of breast (principal); R92.333 Mammographic heterogeneous density, bilateral breasts
CPT/HCPCS: 77067